=== PATIENT | female | born 1995 | race Two or more races ===

== ENCOUNTER 2017-03-28 07:47 | Inpatient (IN) | payer OTHER ==
[2017-03-28 08:49] LABS: Urine Bacteria Absent (Absent); Urine Bilirubin Negative (Negative); Urine Glucose Negative (Negative); Urine Nitrite Negative (Negative)
[2017-03-28 08:57] LABS: Hematocrit 38 % (35-47); Hemoglobin 12.6 g/dl (12.0-16.0); Mean Corpuscular HGB Conc 33 g/dl (31-36); Mean Corpuscular Hemoglobin 27 pg (27-31); Mean Corpuscular Volume 83 fL (80-97); Mean Platelet Volume 10 um3 (7.4-10.4); Red Blood Count 4.63 10^6/ul (4.0-5.4); Red Cell Distribution Width 14 % (10.5-15); White Blood Count 12.4 10^3/ul (3.5-10.8)
[2017-03-28 09:08] LABS: ALT 9 U/L (7-52); AST 18 U/L (13-39); Albumin 4.9 g/dL (3.2-5.2); Alkaline Phosphatase 61 U/L (34-104); Anion Gap 11 mmol/L (2-11); BUN/Creatinine Ratio 12.7 (8-20); Blood Urea Nitrogen 10 mg/dL (6-24); CO2 Carbon Dioxide 21 mmol/L (22-32); Calcium 10.2 mg/dL (8.6-10.3); Chloride 103 mmol/L (101-111); Globulin 3.7 g/dL (2-4); Glucose 122 mg/dL (70-100); Potassium 3.4 mmol/L (3.5-5.0); Sodium 135 mmol/L (133-145); Total Protein 8.6 g/dL (6.4-8.9)
[2017-03-28 09:09] LABS: Acetaminophen < 15 mcg/mL; Alcohol < 10 mg/dL (<10); Salicylate < 2.50 mg/dL (<30)
[2017-03-28 09:19] LABS: TSH (Thyroid Stimulating Horm) 0.82 mcIU/mL (0.34-5.60)
[2017-03-28 09:27] LABS: Benzodiazepine Urine Screen None Detected (None Detect)
[2017-03-28] MEDS ORDERED: LORazepam TAB(*) 1 MG ONE (11:42)
[2017-03-28] MEDS ORDERED: QUEtiapine TAB* 100 MG ONE (11:43)
[2017-03-28] MEDS ORDERED: Acetaminophen TAB* 325 MG PO PRN (11:47)
[2017-03-28] MEDS ORDERED: Al Hydrox/Mg Hydrox/Simet LIQ* 30 ML UDC PO PRN (11:47)
[2017-03-28] MEDS: QUEtiapine TAB* 100 MG PO PRN (11:55)
[2017-03-28] MEDS: LORazepam TAB(*) 1 MG PO PRN (11:55)
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
--- NOTE | 2017-03-28 16:18 | ED ---
Nitish Polanco Auryana, scribed for Delio Barrios MD on 03/28/17 at 0824 . Psychiatric Complaint - HPI Summary HPI Summary: 22 year old female BIBA for voluntary MHE. Patient reports increased stress with famiyl, -dx epilepsy, school-recently graduated and trying to find a job/on [email or web address] wait list. She reports decreased sleep since she's been speaking with family in [place] and [place], [place] - having difficulty with the time changes. PMHx is significant for miscarriage (2016). FHx is significant for schizophrenia and DM. - History Of Current Complaint Chief Complaint: EDMentalHealth Time Seen by Provider: 03/28/17 08:10 Accompanied By: Hx Obtained From: Patient Hx From Patient Unobtainable Due To: Other - LEVEL 5 CAVEAT DUE TO TANIKA. Character: Manic Aggravating Factor(s): Recent Stress Associated Signs And Symptoms: Positive: Sleep Disturbance Recent Stressor(s): family, school, - Allergies/Home Medications Allergies/Adverse Reactions: Allergies Allergy/AdvReac Type Severity Reaction Status Date / Time No Known Allergies Allergy Verified 07/06/16 19:13 PMH/Surg Hx/FS Hx/Imm Hx Endocrine/Hematology History: Denies: Hx Diabetes Cardiovascular History: Denies: Hx Hypertension - Family History Known Family History: Positive: Diabetes, Other - schizophrenia - Social History Occupation: Unemployed, Student - [employer] Lives: With Family - Alcohol Use: Occasionally Substance Use Type: Reports: None Hx Tobacco Use: Yes - Occasionally Smoking Status (MU): Never Smoked Tobacco Review of Systems - ROS Summary Review of Systems Summary: LEVEL 5 CAVEAT DUE TO TANIKA. Positive: Other - DECREASED SLEEP. Negative: Fever Positive: Other - increased stress All Other Systems Reviewed And Are Negative: No Physical Exam Triage Information Reviewed: Yes Vital Signs On Initial Exam: Initial Vitals Temp Pulse Resp BP Pulse Ox 98.5 F 117 20 144/47 99 03/28/17 08:16 03/28/17 08:16 03/28/17 08:16 03/28/17 08:16 03/28/17 08:16 Vital Signs Reviewed: Yes Completion Of Physical Exam Limited Due To: Level 5 - LEVEL 5 CAVEAT DUE TO TANIKA. Appearance: Positive: No Pain Distress Skin: Positive: Skin Color Reflects Adequate Perfusion Neck: Positive: Supple Respiratory/Lung Sounds: Positive: Breath Sounds Present Psychiatric: Positive: Other - manic; flight of ideas; sometimes tangential and sometimes circumferential Diagnostics - Vital Signs Vital Signs Temp Pulse Resp BP Pulse Ox 03/28/17 11:55 16 03/28/17 08:21 98.5 F 117 20 144/77 99 03/28/17 08:16 98.5 F 117 20 144/47 99 - Laboratory Lab Results: Lab Results 03/28/17 03/28/17 03/28/17 Range/Units 08:25 08:25 08:35 WBC 12.4 H (3.5-10.8) 10^3/ul RBC 4.63 (4.0-5.4) 10^6/ul Hgb 12.6 (12.0-16.0) g/dl Hct 38 (35-47) % MCV 83 (80-97) fL MCH 27 (27-31) pg MCHC 33 (31-36) g/dl RDW 14 (10.5-15) % Plt Count 290 (150-450) 10^3/ul MPV 10 (7.4-10.4) um3 Neut % (Auto) 82.2 (38-83) % Lymph % (Auto) 10.8 L (25-47) % Walsh % (Auto) 6.5 (1-9) % Eos % (Auto) 0.2 (0-6) % Baso % (Auto) 0.3 (0-2) % Absolute Neuts (auto) 10.2 H (1.5-7.7) 10^3/ul Absolute Lymphs (auto) 1.3 (1.0-4.8) 10^3/ul Absolute Monos (auto) 0.8 (0-0.8) 10^3/ul Absolute Eos (auto) 0 (0-0.6) 10^3/ul Absolute Basos (auto) 0 (0-0.2) 10^3/ul Absolute Nucleated RBC 0 10^3/ul Nucleated RBC % 0 Sodium (133-145) mmol/L Potassium (3.5-5.0) mmol/L Chloride (101-111) mmol/L Carbon Dioxide (22-32) mmol/L Anion Gap (2-11) mmol/L BUN (6-24) mg/dL Creatinine (0.51-0.95) mg/dL Est GFR ( Amer) (>60) Est GFR (Non-Af Amer) (>60) BUN/Creatinine Ratio (8-20) Glucose (70-100) mg/dL Calcium (8.6-10.3) mg/dL Total Bilirubin (0.2-1.0) mg/dL AST (13-39) U/L ALT (7-52) U/L Alkaline Phosphatase (34-104) U/L Total Protein (6.4-8.9) g/dL Albumin (3.2-5.2) g/dL Globulin (2-4) g/dL Albumin/Globulin Ratio (1-3) TSH (0.34-5.60) mcIU/mL Beta HCG, Quant mIU/mL Urine Color Renetta Urine Appearance Cloudy Urine pH 5.0 (5-9) Ur Specific [place] 1.031 H (1.010-1.030) Urine Protein 2+(100 mg/dl) H (Negative) Urine Ketones 2+ H (Negative) Urine Blood 3+ H (Negative) Urine Nitrate Negative (Negative) Urine Bilirubin Negative (Negative) Urine Urobilinogen Negative (Negative) Ur Leukocyte Esterase Trace H (Negative) Urine WBC (Auto) Trace(0-5/hpf) (Absent) Urine RBC (Auto) 3+(>10/hpf) H (Absent) Ur Squamous Epith Cells Present H (Absent) Urine Bacteria Absent (Absent) Urine Glucose Negative (Negative) Urine Ascorbic Acid * H (Negative) Salicylates (<30) mg/dL Urine Opiates Screen None detected (None Detect) Acetaminophen mcg/mL Ur Barbiturates Screen None detected (None Detect) Ur Phencyclidine Scrn None detected (None Detect) Ur Amphetamines Screen None detected (None Detect) U Benzodiazepines Scrn None detected (None Detect) Urine Cocaine Screen None detected (None Detect) U Cannabinoids Screen Presumptive positive H (None Detect) Serum Alcohol (<10) mg/dL 03/28/17 Range/Units 08:35 WBC (3.5-10.8) 10^3/ul RBC (4.0-5.4) 10^6/ul Hgb (12.0-16.0) g/dl Hct (35-47) % MCV (80-97) fL MCH (27-31) pg MCHC (31-36) g/dl RDW (10.5-15) % Plt Count (150-450) 10^3/ul MPV (7.4-10.4) um3 Neut % (Auto) (38-83) % Lymph % (Auto) (25-47) % Walsh % (Auto) (1-9) % Eos % (Auto) (0-6) % Baso % (Auto) (0-2) % Absolute Neuts (auto) (1.5-7.7) 10^3/ul Absolute Lymphs (auto) (1.0-4.8) 10^3/ul Absolute Monos (auto) (0-0.8) 10^3/ul Absolute Eos (auto) (0-0.6) 10^3/ul Absolute Basos (auto) (0-0.2) 10^3/ul Absolute Nucleated RBC 10^3/ul Nucleated RBC % Sodium 135 (133-145) mmol/L Potassium 3.4 L (3.5-5.0) mmol/L Chloride 103 (101-111) mmol/L Carbon Dioxide 21 L (22-32) mmol/L Anion Gap 11 (2-11) mmol/L BUN 10 (6-24) mg/dL Creatinine 0.79 (0.51-0.95) mg/dL Est GFR ( Amer) 117.0 (>60) Est GFR (Non-Af Amer) 91.0 (>60) BUN/Creatinine Ratio 12.7 (8-20) Glucose 122 H (70-100) mg/dL Calcium 10.2 (8.6-10.3) mg/dL Total Bilirubin 1.00 (0.2-1.0) mg/dL AST 18 (13-39) U/L ALT 9 (7-52) U/L Alkaline Phosphatase 61 (34-104) U/L Total Protein 8.6 (6.4-8.9) g/dL Albumin 4.9 (3.2-5.2) g/dL Globulin 3.7 (2-4) g/dL Albumin/Globulin Ratio 1.3 (1-3) TSH 0.82 (0.34-5.60) mcIU/mL Beta HCG, Quant 42.40 mIU/mL Urine Color Urine Appearance Urine pH (5-9) Ur Specific [place] (1.010-1.030) Urine Protein (Negative) Urine Ketones (Negative) Urine Blood (Negative) Urine Nitrate (Negative) Urine Bilirubin (Negative) Urine Urobilinogen (Negative) Ur Leukocyte Esterase (Negative) Urine WBC (Auto) (Absent) Urine RBC (Auto) (Absent) Ur Squamous Epith Cells (Absent) Urine Bacteria (Absent) Urine Glucose (Negative) Urine Ascorbic Acid (Negative) Salicylates < 2.50 (<30) mg/dL Urine Opiates Screen (None Detect) Acetaminophen < 15 mcg/mL Ur Barbiturates Screen (None Detect) Ur Phencyclidine Scrn (None Detect) Ur Amphetamines Screen (None Detect) U Benzodiazepines Scrn (None Detect) Urine Cocaine Screen (None Detect) U Cannabinoids Screen (None Detect) Serum Alcohol < 10 (<10) mg/dL Result Diagrams: 03/28/17 08:35 03/28/17 08:35 Lab Statement: Any lab studies that have been ordered have been reviewed, and results considered in the medical decision making process. Course/Dx - Course Course Of Treatment: Ms. Arambula presented clearly manic. Her labs were normal and she was admitted to the MHU after evaluation. - Differential Dx/Clinical Impression Provider Diagnosis: PSYCHOTIC DISORDER NOS - Physician Notifications Patient Is Medically Stable For: Psych Evaluation - at 09:30 - Critical Care Time Critical Care Time: 30-74 min Discharge - Discharge Plan Condition: Stable Disposition: ADMITTED TO [facility] The documentation as recorded by the Nitish wu Auryana accurately reflects the service I personally performed and the decisions made by , Delio Barrios MD.
[2017-03-28] MEDS ORDERED: QUEtiapine TAB* 100 MG PO SCH (21:00)
[2017-03-29 08:36] LABS: Hematocrit 39 % (35-47); Hemoglobin 12.8 g/dl (12.0-16.0); Mean Corpuscular HGB Conc 33 g/dl (31-36); Mean Corpuscular Hemoglobin 28 pg (27-31); Mean Corpuscular Volume 85 fL (80-97); Mean Platelet Volume 10 um3 (7.4-10.4); Red Blood Count 4.59 10^6/ul (4.0-5.4); Red Cell Distribution Width 14 % (10.5-15)
[2017-03-29 08:47] LABS: Albumin 4.8 g/dL (3.2-5.2); BUN/Creatinine Ratio 14.5 (8-20); Calcium 9.9 mg/dL (8.6-10.3); EGFR African American 122.4 (>60); EGFR Non-African American 95.2 (>60); Globulin 3.8 g/dL (2-4); Potassium 3.5 mmol/L (3.5-5.0); Total Bilirubin 1.1 mg/dL (0.2-1.0); Total Protein 8.6 g/dL (6.4-8.9)
[2017-03-29] MEDS: Vitamin THERAPEUTIC TAB PO SCH (09:14)
--- NOTE | 2017-03-29 13:27 | PN ---
Subjective - Subjective Service Type: 41201 Hosp care 15 min low complexity Subjective: Pt slept most of yesterday afternoon. Didn't receive qhs meds. Up since around 3am. Staff note she has made bizarre statements with labile mood. She talked to staff today about AH and VH. Pt found in the milieu. Mood is "better" and she is "observant." She then talks about "absorbing" people around her. She seemed confused and asked me to write her name and the time in her notebook. She denies feeling depressed or anxious. She reports feeling "hormonal" in the past, then getting an IUD, and has been having "side pain" since. She reports increased energy. She is pleased that she slept yesterday. She frequently needs to be redirected due to loose thought process (talking about Sharad, health care, ). She feels safe on the unit. She notes auditory and visual hallucinations when "falling asleep" but has difficulty elaborating. She denies SI or HI. I reviewed medications with her. Objective - Appearance Appearance: Well Developed/Nourished, Healthy Appearing - found in milieu Dysmorphic Features: No Grooming: Fairly Well Kept - Behavior Psychomotor Activities: Abnormal-Increased - Attitude and Relatedness Attitude and Relatedness: Cooperative Eye Contact: Good - Speech Quality: Pressured Latencies: Short Quantity: Copious - improved compared to yesterday - Mood Patient's Decription of Mood: "observant" - Affect Observed Affect: Labile Affect Consistent with: Euthymia - Thought Process Patient's Thought Process: Disorganized, Loose Associations, Tangential, Filght of Ideas Thought Content: No Passive Wish, No Suicidal Planning, No Homicidal Ideation, No Paranoid Ideation - Sensorium Experiencing Hallucinations: Yes Type of Hallucinations: Visual: Yes, Auditory: Yes - Level of Consciousness Level of Consciousness: Alert Orientation: No Intact, No Orientated to Time, No Orientated to Place, No Orientated to Person - Impulse Control Impulse Control: Poor - Insight and Judgement Insight and Judgement: Impaired Assessment - Assessment Merits Inpatient Hospitalization: For Immediate Safety, For Stabilization, Diagnosis Determination, To Initiate Treatment, For Ongoing Evaluation Inpatient DSM-IV Dx: Psychosis unspecified. r/o Brief Psychotic D/o vs Bipolar I. Cannabis Use D/o, r/o Substance induced rico/psychosis Clinical Impression: 22yo female with a hx of cannabis use, family hx of schizophrenia, and no previous mental health treatment admitted for rico. Pt sleep improved somewhat with quetiapine by thought process remains loose/disorganized and she continues to have perceptual disturbances. Plan - Plan Treatment Plan: Name: DAYANARA SCOTT Birthdate: 1995 [id number] - increase quetiapine to 200mg po qhs tonight - continue quetiapine and lorazepam prns. Encourage staff to use prns - to continue to monitor labs Medications: Current Medications Acetaminophen (Tylenol Tab*) 650 mg PO Q4H PRN PRN Reason: for pain; or Temp >101 F Al Hydrox/Mg Hydrox/Simethicone (Maalox Plus*) 30 ml PO Q4H PRN PRN Reason: INDIGESTION Lorazepam (Ativan Tab(*)) 1 mg PO Q4H PRN PRN Reason: ANXIETY Last Admin: 03/28/17 11:55 Dose: 1 mg Multivitamins (Theragran Tab*) 1 tab PO DAILY LYNN Last Admin: 03/29/17 09:14 Dose: 1 tab Quetiapine Fumarate (Seroquel Tab*) 100 mg PO BEDTIME LYNN Last Admin: 03/28/17 22:59 Dose: Not Given Quetiapine Fumarate (Seroquel Tab*) 100 mg PO BID PRN PRN Reason: AGITATION/INSOMNIA Last Admin: 03/28/17 11:55 Dose: 100 mg
[2017-03-29] MEDS: QUEtiapine TAB* 100 MG PO PRN (15:50)
[2017-03-29] MEDS: QUEtiapine TAB* 100 MG PO SCH (20:02)
[2017-03-30] MEDS: LORazepam TAB(*) 1 MG PO PRN (08:53)
[2017-03-30] MEDS: Vitamin THERAPEUTIC TAB PO SCH (08:53)
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
[2017-03-30] MEDS: QUEtiapine TAB* 100 MG PO SCH (21:35)
[2017-03-31] MEDS: Vitamin THERAPEUTIC TAB PO SCH (09:30)
[2017-03-31] MEDS: Venlafaxine EXT RELEASE CAP* 75 MG PO SCH (09:31)
--- NOTE | 2017-03-31 11:58 | PN ---
MHU: Group Therapy Note - Service Type Service Type: 00563 Group Psychotherapy - Cognitive Behavioral Group Therapy ( CBT):Patient was attentive and participatory in CBT programming this morning, and remained in good behavioral control. Patient expressed positive insights regarding relevant treatment interventions and goals. Pedro was tearful in individual discussion occuring after group had completed, describing feeling overwhelmed by career interests, and describing not feeling safe if compelled to travel without her . She responded well to discussion encouraging her to make one step at a time.
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
[2017-03-31] MEDS: QUEtiapine TAB* 100 MG PO SCH (20:57)
[2017-04-01] MEDS: Vitamin THERAPEUTIC TAB PO SCH (07:27)
[2017-04-01] MEDS: LORazepam TAB(*) 1 MG PO PRN (07:27)
[2017-04-01] MEDS: Venlafaxine EXT RELEASE CAP* 75 MG PO SCH (07:28)
--- NOTE | 2017-04-01 11:54 | PN ---
MHU: Group Therapy Note - Service Type Service Type: 19652 Group Psychotherapy - Cognitive Behavioral Group Therapy ( CBT):Patient was attentive and participatory in CBT programming this morning, and remained in good behavioral control. Patient expressed positive insights regarding relevant treatment interventions and goals.
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
[2017-04-01] MEDS: QUEtiapine TAB* 100 MG PO SCH (21:53)
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
[2017-04-02] MEDS: Venlafaxine EXT RELEASE CAP* 75 MG PO SCH (07:43)
[2017-04-02] MEDS: Vitamin THERAPEUTIC TAB PO SCH (07:43)
[2017-04-02 08:52] VITALS: BP 132/91
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
--- NOTE | 2017-04-02 11:44 | PN ---
[facility]: Group Therapy Note - Service Type Service Type: [id number] Group Psychotherapy - Cognitive Behavioral Group Therapy ( CBT):Patient was attentive and participatory in CBT programming this morning, and remained in good behavioral control. Patient expressed positive insights regarding relevant treatment interventions and goals.
[2017-04-02 13:19] LABS: HDL Cholesterol 42.9 mg/dL
== END 2017-04-02 14:15 | disposition home or self-care (01) | DRG 885 ==
LOC: ED 07:47 → BSU 12:41
PROVIDERS: ADMIT Psychiatry & Neurology Psychiatry; ATTEND Psychiatry & Neurology Psychiatry
DX: F28 Other psychotic disorder not due to a substance or known physiological condition (principal); F12.10 Cannabis abuse, uncomplicated; Z72.820 Sleep deprivation; F43.10 Post-traumatic stress disorder, unspecified; Z81.8 Family history of other mental and behavioral disorders
CPT/HCPCS: 36415; 80053; 80061; 80307; 80320; 80329; 81003; 81015; 84443; 84702; 85025; 87077; 87086; 87186; 90853; 96102; 99222; 99231; 99232; 99233; 99238; 99283; A9270-GY; G0480